=== PATIENT | female | born 1955 | race Caucasian/White ===

== ENCOUNTER → 2016-08-15 | Day surgery (SDC) | payer BC ==
[~2016-08-15] MED LIST: BACITRACIN IM FOR SOLN 50,000 UNIT VIAL ONE; BUPIVACAINE/EPINEPHRINE 0.25% 50 ML VIAL ONE; BUPIVACAINE/EPINEPHRINE 0.25% PF 10 ML VIAL ONE; GENTAMICIN SULFATE 80 MG/2 ML VIAL ONE; KETOROLAC TROMETHAMINE 30 MG/ML (IVP) VIAL IV PUSH ONE; LACTATED RINGER'S 1000 ML INJ 1,000 ML ONE; MEPERIDINE HCL 50 MG/ML VIAL ONE; MIDAZOLAM HCL 2 MG/2 ML VIAL ONE; MORPHINE SULFATE 4 MG/ML INJ ONE; ONDANSETRON HCL 4 MG/2 ML VIAL IV PUSH ONE; PROPOFOL 200 MG/20 ML AMP IV ONE; SODIUM CHLOR 0.9% 250 ML INJ 250 ML IV ONE; SODIUM CHLORIDE 0.9% INJ 10 ML ONE; VANCOMYCIN HCL 1000 MG VIAL ONE; ceFAZolin 2 GM PREMIX 50 ML ONE; ceFAZolin INJ 1,000 MG VIAL ONE
--- NOTE | 2016-08-16 12:24 | TN ---
cc: DANNA PERRY M.D. DATE OF SURGERY 08/15/2016 PREOPERATIVE DIAGNOSIS Right knee medial compartment severe osteoarthritis, chondromalacia patella, genu varus deformity. POSTOPERATIVE DIAGNOSIS Right knee medial compartment severe osteoarthritis, chondromalacia patella, genu varus deformity. PROCEDURE Right knee medial unicondylar arthroplasty, partial patellectomy SURGEON Chencho Perry MD INTENSIVE CARE MEDICINE SPECIALIST Yosi Perry MD, Deya Vang PA-C ESTIMATED BLOOD LOSS Minimum COMPLICATIONS None ANESTHESIA General DRAINS One TOURNIQUET TIME 48 minutes at 250 mmHg CONDITION Stable PLAN OF ACTIVITY Per orders PROCEDURE My phlebotomy lab assistant, Arthur Perry MD, was present for the entire surgical case. He was medically necessary for the entire case because of the complexity of the case and to facilitate the performance of the procedure. The DENTAL LABORATORY ASSISTANT at the back table was not a skill set for this case to manipulate the instruments e.g. the multiple different types of soft tissue tractors, trial implants, permanent plans including methacrylate bone cement. The patient brought into the operating room and had satisfactory general endotracheal anesthesia by the Department of Anesthesia. The right lower extremity was prepped and draped in the usual sterile manner. The extremity was exsanguinated by Fermin wrap and tourniquet was inflated to 250 mmHg. A small anterior medial exposure to the knee was made. A paramedian capsulotomy was performed. The patient was found to have severe osteoarthritis involving the medial compartment with a genu varus deformity. The patient also found to have osteoarthritis involving the medial facet of the patella. Partial patellectomy was performed. Oscillating saw, removing longitudinally the medial facet of the patella. The remaining portion of the medial meniscus was removed. A portion of the prepatellar fat pad was removed. The anterior cruciate ligament was preserved. Using a [employer] unicondylar arthroplasty system, a guide was used to remove the posterior condyle of the distal femur which was approximately 8 mm. A bur was then used to prepare for the proximal tibia to accept a #3 6.5 mm tibial component and the distal femur was prepared to accept a #3 right medial femoral component. Trial reduction was made. The patient was found to have excellent correction of the varus deformity and satisfactory balance in both flexion and extension. Large medial osteophytes in the distal femur were removed using rongeurs. All trial components removed. Preparation for cementing was made. The osteophytes were removed using rongeurs. ADDENDUM All trial components were removed. Preparation for cementing was made. The osteophytes along the medial and distal femoral condyle were removed using rongeurs. First, the tibia was cemented. This was one package of Biomet high viscosity bone cement. First, the tibial component was cemented which was a #3 6.5 mm tibial component and then the femoral component #3 right medial femoral component. All excess bone cement was removed. The bone cement was allowed to harden for 12-1/2 minutes. The knee itself was injected with local anesthesia to provide postoperative hemostasis and also analgesia. Tourniquet was deflated. All bleeders were individually coagulated. The wound itself was dry. It was irrigated with copious amounts of sterile saline antibiotic solution. The wound was closed over a over a Hemovac drain. The capsule was repaired using multiple interrupted #2 Tycron sutures. The subcutaneous layers approximated with 2-0 Vicryl and skin approximated with running subcuticular 3-0 Vicryl, Benzoin and Steri-Strips. Sterile dressing applied. The patient tolerated the procedure well and arrived in the Recovery Room in stable and satisfactory condition. MD EMILY Tamez/DARLENE /12:05 PM /3:43 PM
== END | disposition home or self-care (01) ==
LOC: ESDC 06:00
PROVIDERS: ATTEND Orthopaedic Surgery Orthopaedic Surgery of the Spine
DX: M17.11 Unilateral primary osteoarthritis, right knee (principal); M22.41 Chondromalacia patellae, right knee
CPT/HCPCS: 01400; 27446; C1776; J0690; J1580; J1885; J2175; J2250; J2270; J2405; J3010; J3370; J7050; J7120